=== PATIENT | female | born 1945 | race Two or more races ===

== ENCOUNTER 2017-09-14 11:19 | Outpatient (CLI) | payer OTHER | END 2017-09-14 12:17 | disposition home or self-care (01) | LOC: SONOGRAMA 11:19 | DX: E11.9 Type 2 diabetes mellitus without complications (principal); I11.9 Hypertensive heart disease without heart failure ==

== ENCOUNTER 2018-12-31 11:30 | Emergency (ER) | payer OTHER ==
[~2018-12-31] VITALS: Ht 149.9 cm; Wt 62.6 kg
[2018-12-31] MEDS ORDERED: ZIAC 2.5-6.251 EACH (11:43)
[2018-12-31] MEDS ORDERED: LISINOPRIL-HCT1 EAC2 (11:43)
[2018-12-31] MEDS ORDERED: NORVASC5 MG (11:44)
[2018-12-31] MEDS ORDERED: LIPITOR20 MG (11:44)
[2018-12-31] MEDS ORDERED: OMEPRAZOLE20 M1 (11:44)
[2018-12-31] MEDS ORDERED: NEURONTIN300 MG (11:45)
[2018-12-31] MEDS ORDERED: FOLIC ACID1 MG (11:45)
== END 2018-12-31 14:33 | disposition home or self-care (01) ==
LOC: ER 11:30
DX: G89.11 Acute pain due to trauma (principal); G44.309 Post-traumatic headache, unspecified, not intractable

== ENCOUNTER → 2019-06-24 | Outpatient (CLI) | payer OTHER ==
[~2019-06-24] MED LIST: FOLIC ACID1 MG; LIPITOR20 MG; LISINOPRIL-HCT1 EAC2; NEURONTIN300 MG; NORVASC5 MG; OMEPRAZOLE20 M1; ZIAC 2.5-6.251 EACH
== END | disposition home or self-care (01) ==
LOC: NUCLEAR 06-23 13:00
DX: M81.0 Age-related osteoporosis without current pathological fracture (principal)

== ENCOUNTER → 2020-03-07 12:37 | Outpatient (CLI) | payer OTHER | END | disposition home or self-care (01) | LOC: LAB 12:37 | PROVIDERS: ATTEND Physical Medicine & Rehabilitation | DX: Z20.828 Contact with and (suspected) exposure to other viral communicable diseases (principal); Z11.59 Encounter for screening for other viral diseases ==

== ENCOUNTER 2020-04-11 11:40 | Outpatient (CLI) | payer OTHER | END 2020-04-11 13:00 | disposition home or self-care (01) | LOC: OFIC 805 11:40 | PROVIDERS: ATTEND Otolaryngology Otology & Neurotology | DX: H60.391 Other infective otitis externa, right ear (principal); H92.01 Otalgia, right ear; H91.8X3 Other specified hearing loss, bilateral ==

== ENCOUNTER 2020-04-16 11:26 | Outpatient (CLI) | payer OTHER | END 2020-04-16 12:30 | disposition home or self-care (01) | LOC: OFIC 805 11:26 | PROVIDERS: ATTEND Otolaryngology Otology & Neurotology | DX: H60.391 Other infective otitis externa, right ear (principal); H92.01 Otalgia, right ear; H90.3 Sensorineural hearing loss, bilateral; H61.21 Impacted cerumen, right ear ==

== ENCOUNTER → 2020-05-07 | Outpatient (CLI) | payer OTHER | END | disposition home or self-care (01) | LOC: OFIC 805 13:15 | PROVIDERS: ATTEND Otolaryngology Otology & Neurotology | DX: H66.92 Otitis media, unspecified, left ear (principal); H91.8X3 Other specified hearing loss, bilateral ==

== ENCOUNTER → 2020-07-02 | Outpatient (CLI) | payer OTHER | END | disposition home or self-care (01) | LOC: OFIC 805 15:50 | PROVIDERS: ATTEND Otolaryngology Otology & Neurotology | DX: H90.0 Conductive hearing loss, bilateral (principal); H65.23 Chronic serous otitis media, bilateral ==

== ENCOUNTER 2020-08-03 09:02 | Outpatient (CLI) | payer OTHER | END 2020-08-03 09:13 | disposition home or self-care (01) | LOC: LAB 09:02 | PROVIDERS: ATTEND Otolaryngology Otology & Neurotology | DX: D64.89 Other specified anemias (principal); H65.23 Chronic serous otitis media, bilateral; D68.8 Other specified coagulation defects ==

== ENCOUNTER 2020-08-13 13:25 | Outpatient (CLI) | payer OTHER | END 2020-08-13 17:10 | disposition home or self-care (01) | LOC: OFIC 805 13:25 | PROVIDERS: ATTEND Otolaryngology Otology & Neurotology | DX: H90.0 Conductive hearing loss, bilateral (principal); H65.23 Chronic serous otitis media, bilateral ==

== ENCOUNTER 2020-08-17 07:00 | Day surgery (SDC) | payer OTHER ==
[2020-08-17] MEDS ORDERED: CIPROFLOXACIN HC5 ML OTIC (10:30)
== END 2020-08-17 12:50 | disposition home or self-care (01) ==
LOC: CIR.AMB 07:00
PROVIDERS: ATTEND Otolaryngology Otology & Neurotology
DX: H90.0 Conductive hearing loss, bilateral (principal); H65.23 Chronic serous otitis media, bilateral; Z20.822 Contact with and (suspected) exposure to COVID-19

== ENCOUNTER 2020-09-03 14:13 | Outpatient (CLI) | payer OTHER ==
[~2020-09-03 14:13] MED LIST changes: +CIPROFLOXACIN HC5 ML OTIC
== END 2020-09-03 15:28 | disposition home or self-care (01) ==
LOC: OFIC 805 14:13
PROVIDERS: ATTEND Otolaryngology Otology & Neurotology
DX: H65.23 Chronic serous otitis media, bilateral (principal); H90.0 Conductive hearing loss, bilateral

== ENCOUNTER 2021-04-19 09:45 | Outpatient (CLI) | payer OTHER | END 2021-04-19 10:00 | disposition home or self-care (01) | LOC: PPH VACUNA 09:45 | PROVIDERS: ATTEND Emergency Medicine Pediatric Emergency Medicine | DX: Z23 Encounter for immunization (principal) ==

== ENCOUNTER 2022-07-22 11:45 | Outpatient (CLI) | payer OTHER | END 2022-07-22 11:55 | disposition home or self-care (01) | LOC: PPH VACUNA 11:45 | PROVIDERS: ATTEND Emergency Medicine Pediatric Emergency Medicine | DX: Z23 Encounter for immunization (principal) ==

== ENCOUNTER 2022-10-15 10:29 | Outpatient (CLI) | payer OTHER | END 2022-10-15 10:39 | disposition home or self-care (01) | LOC: SONOGRAMA 10:29 | PROVIDERS: ATTEND Internal Medicine Cardiovascular Disease | DX: E03.9 Hypothyroidism, unspecified (principal) ==